=== PATIENT | male | born 1985 | race Caucasian/White ===

== ENCOUNTER 2024-08-09 14:26 | Emergency (ER) | payer OTHER, SELFPAY ==
--- NOTE | 2024-08-09 14:32 | ED.EAR ---
HPI - Ear Problem General Chief complaint: Ear Stated complaint: ear drainage Time Seen by Provider: 08/09/24 14:40 Source: patient and RN notes reviewed Mode of arrival: ambulatory Limitations: no limitations History of Present Illness HPI Narrative: 39-year-old male presents with concern for decreased hearing wax buildup in the left ear. He reports he was seen in urgent care in [place] and took an antibiotic and prednisone for an ear infection. Reports he finished that last week. Reports his urgent care told him when his ear infection was better he should come back and have his ear flushed. He denies pain or drainage P MD Complaint: decreased hearing Related Data Allergies Allergy/AdvReac Type Severity Reaction Status Date / Time No Known Allergies Allergy Verified 08/09/24 14:37 Review of Systems Review of Systems: CONSTITUTIONAL: Denies malaise, chills, sweats, or fever. EYES: Denies visual changes, redness, or discharge. ENT: Denies rhinorrhea, congestion, sinus pain, and sore throat. Denies ear pain, reports decreased hearing in the left ear CARDIOVASCULAR: Denies chest pain, palpitations, or edema. RESPIRATORY: Denies cough. Denies dyspnea. GASTROINTESTINAL: Denies abdominal pain, nausea, vomiting, diarrhea SKIN: Denies rash or itching. MUSCULOSKELETAL: Denies myalgia. NEUROLOGIC: Denies headache. All systems reviewed & are unremarkable except as noted in HPI and below PMFSH Social History Social History Smoking status: Current every day smoker Alcohol intake: current Comments At time of signature, agree with nursing past medical, surgical, social and family history. There is no relevant family history pertinent to the presenting complaint Exam Narrative: GENERAL: Well-appearing, well-nourished, and in no acute distress. HEAD: Normocephalic EYES: PERRLA, conjunctivae clear ENT: Nares clear. Mucous membranes moist. Excess cerumen noted to the left EAC, after cleaned out TM pearly singh with sharp light reflex bilaterally; no tragal tenderness however the left EAC is slightly erythematous after cleaning out wax. NECK: Supple. No lymphadenopathy CHEST: No respiratory distress, speaks in full sentences. HEART: Regular rate and rhythm. No murmur heard. SKIN: Warm, dry, no rash. NEURO: Alert and oriented x3. PSYCH: Normal mood and affect Course Course Emergency Course: Patient is aware of diagnosis, understands and agrees to treatment plan. Anticipatory guidance given. Patient agrees to follow-up as directed and is aware of reasons to seek care at the emergency department. Portions of this record may have been created with voice recognition software Level of Care: [facility] Visit Vital Signs Vital signs: Reviewed. Medical Decision Making MDM Narrative Medical decision making narrative: I evaluated this in the [facility]. History is obtained from patient who is an independent historian and physical exam was performed.? Available medical records were reviewed. ? Exam findings and relevant testing show no acute concerns or changes; patient is non-toxic appearing and is in no distress. Differential diagnosis considered: Stuart virus, strep pharyngitis, allergic rhinitis, upper respiratory tract infection, sinusitis, rhinosinusitis, nasopharyngitis. viral pharyngitis, otitis media, otitis externa, otitis effusion, cerumen impaction, foreign body. Exam findings show no acute concerns or changes; patient is non-toxic appearing and is in no distress. Patient is appropriate for outpatient treatment and follow-up. ? Differential diagnosis and treatment plan were discussed with the patient. Patient agrees with discussion and after shared medical decision making agrees with plan of care. All questions were answered to the patient's satisfaction. Patient is appropriate for outpatient treatment and follow-up. Critical Care Time Critical Care Time Critical Care Time: No Discharge Plan Discharge Clinical Impression: Excess ear wax, Otitis externa Patient Disposition: Home Condition: Stable Instructions: How to Use Ear Drops (ED) Additional Instructions: 1) Please follow-up with your primary care doctor as needed. 2) If you have any worsening of symptoms or any other urgent concerns please go to the ER. 3) Please take medications as prescribed and continue taking your home medications as usual. 4) Please read and follow information included in discharge instructions. Patient Language: [place] Prescriptions: New [id number] 3.5-10,000-1 mg/mL-unit/mL-% drops,suspension 4 drop LEFT EAR Q8H 7 Days Qty: 10 0RF Follow-up/Referrals: PHYSICIAN,DIETETIC TECHNICIAN [Primary Care Provider] - Time of Disposition: 14:53
[2024-08-09 14:34] VITALS: BP 110/79; PULSE 109; RESP 16; TEMP 36.1; O2SAT 98
== END 2024-08-09 14:55 | disposition home or self-care (01) ==
PROVIDERS: Emergency Provider Nurse Practitioner; Referring Provider Family Medicine
DX: H61.22 Impacted cerumen, left ear (principal); H60.92 Unspecified otitis externa, left ear; F17.210 Nicotine dependence, cigarettes, uncomplicated
CPT/HCPCS: 69209; 99203; G0463